=== PATIENT | male | born 1990 | race Caucasian/White ===

== ENCOUNTER 2023-05-21 08:04 | Emergency (ER) | payer OTHER, SELFPAY ==
[2023-05-21 08:20] VITALS: BP 128/82; PULSE 69; RESP 18; TEMP 36.6; O2SAT 98; BMI 25.3
--- NOTE | 2023-05-21 08:51 | ED_ITS ---
HPI - General Adult General Chief complaint: Abdominal Pain Stated complaint: right sided pain under ribs Time Seen by Provider: 05/21/23 08:30 Source: patient Mode of arrival: ambulatory Limitations: no limitations History of Present Illness HPI narrative: 32-year-old male coming in today complaining abdominal pain going on for 3 days. He denies any nausea or vomiting. Pain is located on the right mid abdomen and is constant. Pain does not radiate. He denies any increased urinary frequency, urgency or dysuria. He denies any diarrhea or constipation. Last BM was last evening and it was normal. He denies fevers or chills. Nothing seems to make the pain better or worse. He denies any intra-abdominal surgery in the past, takes no medications. Appetite has been normal. Pain is mild and does not pre vent him from doing his daily activities. Related Data Home Medications Medication Instructions Recorded Confirmed No Known Home Medications 05/21/23 05/21/23 Allergies Allergy/AdvReac Type Severity Reaction Status Date / Time No Known Drug Allergies Allergy Verified 05/21/23 08:20 Review of Systems Status of ROS: Reports: 10 or more systems reviewed and unremarkable except as noted in History and below [facility] Social History Smoking Status: Current some day smoker What tobacco products do you use: cigarettes Do you use any of these nicotine containing products: None Second hand tobacco smoke exposure: No How often do you have a drink containing alcohol: 2-4 times a month How many standard drinks containing alcohol do you have on a typical day: 5 or 6 How often do you have six or more drinks on one occasion: Weekly AUDIT-C Alcohol total score: 7 Non-prescribed substance use: denies use service: No Exam Narrative: Exam Narrative: Well-nourished well-developed patient in no acute distress. Alert and oriented. Answers questions appropriately. Mood and affect are appropriate. Thoughts are goal oriented and rational. No tangential or magical thinking noted. Patient speaks in full sentences without needing to catch their breath. HEENT: Normocephalic atraumatic. Pupils are equally round reactive to light. Extraocular muscles are intact. Conjunctivae are moist without any icterus noted. Moist mucous membranes. Posterior pharynx is normal. Neck is soft without any lymphadenopathy or thyromegaly. No masses are appreciated. Cardiovascular: Heart is regular rate and rhythm S1 and S2 are present without any murmurs. Lungs: Clear to auscultation bilaterally no wheezes rhonchi or rales are appreciated. Patient takes deep breaths without any discomfort. Abdomen: Soft and nondistended with normal bowel sounds. No guarding or rebound. No masses or organomegaly appreciated. He has mild right-sided tenderness. This extends into the flank. Negative Gray sign. No pain at McBurney's point. No lower abdominal discomfort. Extremities: Bilateral lower extremities are without edema. Skin: Well perfused without any obvious rashes. Const: Vital Signs, click to edit/add: Vital Signs - 24 hr 05/21/23 08:20 Temperature 97.9 F Pulse Rate [Pulse Oximeter] 69 Respiratory Rate 18 Blood Pressure [Ri ght Upper Arm] 128/82 Pulse Oximetry 98 Oxygen Delivery Me thod Room Air Course Course ED Course: Differential diagnoses includes kidney stone, appendicitis, musculoskeletal pain, colitis. CBC is unremarkable. Remainder of blood work was entirely normal including a UA. No evidence of i nfection or inflammation noted. Vital Signs Vital signs: Initial Vital Signs Temperature 97.9 F 05/21/23 08:20 Temperature Source Temporal Artery Scan 05/21/23 08:20 Pulse Rate 69 05/21/23 08:20 Pulse Rhythm Regular 05/21/23 08:20 Respiratory Rate 18 05/21/23 08:20 Blood Pressure 128/82 05/21/23 08:20 Blood Pressure Mean 97 05/21/23 08:20 Blood Pressure Position Supine 05/21/23 08:20 Pulse Oximetry 98 05/21/23 08:20 Oxygen Delivery Method Room Air 05/21/23 08:20 Vital Signs Temperature 97.9 F 05/21/23 08:20 Pulse Rate 69 05/21/23 08:20 Respiratory Rate 18 05/21/23 08:20 Blood Pressure 128/82 05/21/23 08:20 Pulse Oximetry 98 05/21/23 08:20 Oxygen Delivery Method Room Air 05/21/23 08:20 Temperature 97.9 F 05/21/23 08:20 Pulse Rate 69 05/21/23 08:20 Respiratory Rate 18 05/21/23 08:20 Blood Pressure 128/82 05/21/23 08:20 Pulse Oximetry 98 05/21/23 08:20 Oxygen Delivery Method Room Air 05/21/23 08:20 Medical Decision Making MDM Narrative Medical decision making narrative: 32-year-old male with right-sided abdominal pain that is mild, laboratory workup entirely normal. We discussed watching this pain for a few more days to see what happens. We discussed imaging, however given completely normal workup and the fact that the pain is mild, we used mutual decision making and decided to hold off on imaging at this time. If pain worsens, recommend returning to the ER. Otherwise in the meantime recommend ibuprofen or Tylenol as needed. Patient was in agreement with this and had no other questions. Lab Data Lab results reviewed: Yes I reviewed the patient's lab results Labs: Lab Results 05/21/23 05/21/23 Range/Units 08:51 09:00 WBC 6.58 (4.50-11.00) K/uL RBC 5.75 (4.30-5.90) m/uL Hgb 16.3 (13.5-17.5) gm/dL Hct 48.7 (37.0-53.0) % MCV 85 (80-100) fL MCH 28 (26-34) pg MCHC 34 (32-36) gm/dL RDW Coeff of Libra 12.0 (11.5-15.5) % Plt Count 231 (140-440) K/uL Neut % (Auto) 62.8 (42.0-72.0) % Lymph % (Auto) 28.1 (20-44) % Wolfe % (Auto) 6.5 (0.0-11.0) % Eos % (Auto) 1.5 (0.0-7.0) % Baso % (Auto) 0.6 (0.0-3.0) % Neut # (Auto) 4.13 (1.7-7.0) K/uL Lymph # (Auto) 1.85 (0.90-2.90) K/uL Wolfe # (Auto) 0.40 (0.00-0.90) K/UL Eos # (Auto) 0.10 (0.00-0.50) K/uL Baso # (Auto) 0.04 (0.00-0.30) K/uL Abs Immat Gran (auto) 0.03 (0.00-0.30) K/uL Imm/Tot Granulo (auto) 0.5 % Sodium 140 (135-149) mmol/L Potassium 4.1 (3.6-5.1) mmol/L Chloride 106 (96-114) mmol/L Carbon Dioxide 26 (20-32) mmol/L Anion Gap 8 (7-15) mEq/L BUN 16 (5-24) mg/dL Creatinine 0.7 (0.5-1.5) mg/dL Estimated Creat Clear 141.64 Estimated GFR 126 ml/min Glucose 101 (60-115) mg/dL Lactate 1.0 (0.5-1.9) mmol/L Calcium 9.3 (8.4-10.6) mg/dL Total Bilirubin 0.9 (0.1-1.5) mg/dL Direct Bilirubin 0.0 (0.0-0.5) mg/dL AST 33 (12-35) U/L ALT 32 (4-50) U/L Alkaline Phosphatase 55 (40-150) U/L C-Reactive Protein 0.8 (0.5-1.0) mg/dL Total Protein 7.7 (6.0-8.3) g/dL Albumin 4.7 (3.3-5.0) g/dL Lipase 83 (23-300) U/L Urine Color Yellow (Yellow) Urine Appearance Clear (Clear) Urine pH 7.0 (5.0-8.5) Ur Specific [place] 1.020 (1.000-1.030) Urine Protein Negative (Negative) Urine Glucose (UA) Negative (Negative) Urine Ketones Negative (Negative) Urine Blood Negative (Negative) Urine Nitrite Negative (Negative) Urine Bilirubin Negative (Negative) Urine Urobilinogen 0.2 (0.2-1.0) Ur Leukocyte Esterase Negative (Negative) Urine RBC 0-2 (0-2) Urine WBC 0-2 (0-5) Ur Squamous Epith Cells Few (None-Few) Urine Bacteria None (None) Discharge Plan Discharge Clinical Impression: Abdominal pain Patient Disposition: Home, Self-Care Condition: Stable Additional Instructions: Esta erin judith Tylenol/Ibuprofen shaun sea necesario para el dolor. Si el dolor empeora o tiene fiebre, vuelva a la mars de emergencias. Prescriptions: No Action No Known Home Medications Follow Up/Referrals: Provider,Not a Local [Primary Care Provider] - Stand Alone Forms: MyHealth Info Instructions
[2023-05-21 08:58] LABS: Appearance Urine Clear (Clear); Bilirubin Urine Negative (Negative); Blood Urine Negative (Negative); Color Urine Yellow (Yellow); Glucose Urine Negative (Negative); Ketones Urine Negative (Negative); Leukocyte Esterase Urine Negative (Negative); Nitrite Urine Negative (Negative); Protein Urine Negative (Negative); Urobilinogen Urine 0.2 (0.2-1.0)
[2023-05-21 09:09] LABS: Basophils Absolute Auto 0.04 K/uL (0.00-0.30); Basophils Percent Auto 0.6 % (0.0-3.0); Eosinophils Percent Auto 1.5 % (0.0-7.0); Hematocrit 48.7 % (37.0-53.0); Hemoglobin* 16.3 gm/dL (13.5-17.5); Immature Granulocytes Abs Auto 0.03 K/uL (0.00-0.30); Immature Granulocytes Pct Auto 0.5 %; Lymphocytes Absolute Auto 1.85 K/uL (0.90-2.90); Lymphocytes Percent Auto 28.1 % (20-44); Mean Corpuscular HGB Conc 34 gm/dL (32-36); Mean Corpuscular Hemoglobin 28 pg (26-34); Mean Corpuscular Volume 85 fL (80-100); Monocytes Percent Auto 6.5 % (0.0-11.0); Neutrophils Absolute Auto 4.13 K/uL (1.7-7.0); Neutrophils Percent Auto 62.8 % (42.0-72.0); Platelet Count* 231 K/uL (140-440); Red Blood Count 5.75 m/uL (4.30-5.90); White Blood Count* 6.58 K/uL (4.50-11.00)
[2023-05-21 09:13] LABS: Slide Review Reflex No
[2023-05-21 09:20] LABS: RBC Urine 0-2 (0-2); Squamous Epithelial Cell Urine Few (None-Few); WBC Urine 0-2 (0-5)
[2023-05-21 09:24] LABS: Chloride* 106 mmol/L (96-114); Potassium* 4.1 mmol/L (3.6-5.1); Sodium* 140 mmol/L (135-149)
[2023-05-21 09:25] LABS: Albumin* 4.7 g/dL (3.3-5.0)
[2023-05-21 09:27] LABS: Creatinine* 0.7 mg/dL (0.5-1.5); Est. Creatinine Clearance* 141.64; Estimated Glomerular Filt Rate 126 ml/min
[2023-05-21 09:28] LABS: Anion Gap 8 mEq/L (7-15); Aspartate Amino Transferase* 33 U/L (12-35); Bilirubin Total* 0.9 mg/dL (0.1-1.5); Blood Urea Nitrogen* 16 mg/dL (5-24); Calcium* 9.3 mg/dL (8.4-10.6); Carbon Dioxide* 26 mmol/L (20-32); Glucose* 101 mg/dL (60-115); Total Protein* 7.7 g/dL (6.0-8.3)
[2023-05-21 09:29] LABS: Alanine Aminotransferase* 32 U/L (4-50); Alkaline Phosphatase* 55 U/L (40-150); Lipase* 83 U/L (23-300)
[2023-05-21 09:31] LABS: C Reactive Protein* 0.8 mg/dL (0.5-1.0)
== END 2023-05-21 10:25 | disposition home or self-care (01) ==
PROVIDERS: Emergency Provider Family Medicine
DX: R10.9 Unspecified abdominal pain (principal)
CPT/HCPCS: 36415; 80048; 80076; 81001; 83605; 83690; 85025; 86140; 87086; 99283; 99284